=== PATIENT | male | born 1955 | race African-American/Black ===

== ENCOUNTER 2016-05-10 05:03 | Inpatient (IN) | payer OTHER ==
[~2016-05-10] VITALS: Ht 185.4 cm; Wt 70.3 kg
[2016-05-10] MEDS ORDERED: CEFAZOLIN SODIUM/DEXTROSE,ISO 50 ML IV ONE (05:59)
[2016-05-10] MEDS ORDERED: IV NS 0.9% 1,000 ML ONE (05:59)
[2016-05-10] MEDS ORDERED: NEEDLELESS EST SET LARGE BORE 1 EA INFUS.SET MC ONE (06:00)
[2016-05-10] MEDS ORDERED: IV SET PRIMARY 1 EA INFUS.SET MC ONE (06:00)
[2016-05-10] MEDS ORDERED: SECONDARY IV SET 1 EA INFUS.SET MC ONE ×2 (06:00→16:15)
[2016-05-10] MEDS ORDERED: BACITRACIN 50000 UNITS/VIAL ONE (07:14)
[2016-05-10] MEDS ORDERED: BUPIVACAINE 0.5 % PF 150 MG/30 ML VIAL ONE (07:14)
[2016-05-10] MEDS ORDERED: KETOROLAC TROMETHAMINE INJ 30 MG/ML VIAL ONE (07:14)
[2016-05-10] MEDS ORDERED: HYDR-548 PO (07:27)
[2016-05-10 07:44] VITALS: BP 166/101
[2016-05-10] MEDS ORDERED: TRANEXAMIC ACID 3,000 MG in SODIUM CHLORIDE IRRIG SOLUTION 70 ML IR ONE (08:30)
[2016-05-10] MEDS ORDERED: MIDAZOLAM HCL 2 MG/2ML VIAL ONE ×2 (08:51)
[2016-05-10] MEDS ORDERED: MORPHINE SULFATE/PF 10 MG/10ML (1MG/ML) AMPUL ONE (08:52)
[2016-05-10] MEDS ORDERED: AMBIEN 5 MG TABLET PO PRN (12:00)
[2016-05-10] MEDS ORDERED: HYDROMORPHONE MDV 30 MG in IV NS 0.9% 15 ML, PCA TOTAL VOLUME 1 BAG IV PRN ×3 (12:00)
[2016-05-10] MEDS ORDERED: ZOFRAN 4mg/2ML IV PRN (12:00)
[2016-05-10] MEDS ORDERED: NALOXONE HCL 0.4 MG/ML AMPUL IV PRN (12:00)
[2016-05-10] MEDS ORDERED: DULCOLAX 10 MG/SUPP.RECT RC PRN (12:00)
[2016-05-10] MEDS ORDERED: TYLENOL 650 MG TABLET PO PRN (12:00)
[2016-05-10] MEDS ORDERED: COLACE 250 MG CAPSULE PO PRN (12:00)
[2016-05-10] MEDS ORDERED: SENOKOT 8.6 MG TABLET PO PRN (12:00)
--- NOTE | 2016-05-10 12:20 | NUR ---
Tele/RN: notes Per CUSTOMS AND BORDER PROTECTION INSPECTOR Pat report: Dr. Merida made aware for pain management consult.
[2016-05-10 12:30] VITALS: BP 123/90
--- NOTE | 2016-05-10 12:30 | NUR ---
Tele/RN; notes received patient from recovery room via bed with stable condition, initial assessment completed, vss, tele NSR, saturation 95% on room air, s/p right knee surgery with dressing dry and intact, no bleeding noted, ice pack applied to. DVT pump in place, patient wake and alert, no complain, no shortness of breath noted, will continue to monitor closely and intervene as appropriate.
[2016-05-10] MEDS ORDERED: IV SET PRIMARY PUMP SET 1 EA INFUS.SET MC ONE (12:45)
[2016-05-10] MEDS: IV D5/0.45 NACL 1,000 ML IV PRN ×2 (12:49→20:19)
--- NOTE | 2016-05-10 13:45 | NUR ---
Tele/RN: notes Called Pharmacist Tan regarding SEWING MACHINE ADJUSTER order, Tan states:" need Dr. Merida put the order in."
[2016-05-10] MEDS: HYDROCODONE/APAP 5/325MG 1 EACH TABLET PO PRN ×2 (14:01→20:28)
[2016-05-10] MEDS ORDERED: ANESTHESIA TRAY IN PYXIS 1 EA TRAY MC ONE (14:07)
--- NOTE | 2016-05-10 15:00 | NUR ---
Tele/RN: notes PT eval, patient OOB and ambulate with fww, and immobilizer on right leg, walk about 40 ft, tolerated well. back to bed with CPM on -5 to 40, will continue to monitor and assess.
[2016-05-10 16:00] VITALS: BP 110/72
[2016-05-10] MEDS: ANCEF 1 G in IV D5W 50 ML IV SCH (16:24)
[2016-05-10] MEDS: RIVAROXABAN 10 MG TABLET PO SCH (16:28)
--- NOTE | 2016-05-10 18:29 | NUR ---
Tele /RN; notes Patient's condition remains stable, no acute change noted, patient denies pain, no shortness of breath noted, room air saturation >95%,NSR on monitor,vss,tolerated well on CPM. dressing dry and intact on right knee. tolerated diet well, no nausea, vomiting noted, adequate urine output, no BM, no passing gas. Will continue to monitor closely and intervene as appropriate.
--- NOTE | 2016-05-10 19:30 | NUR ---
ENVIRONMENTAL COMPLIANCE INSPECTOR NOTE RECEIVED PATIENT FROM DAY SHIFT, PATIENT IS ALERT AND ORIENTEDX4, DENIES RESPIRATORY DISTRESS OR PAIN AT THIS TIME. HAD RIGHT TKA ON CPM MACHINE ON RIGHT LEG. IV ON LEFT FA IS PATENT AND INTACT, FLUID IS RUNNING. TELE MONITOR SR 88. SRX2, BED IN LOW POSITION, CALL LIGHT WITHIN REACH, WILL CONTINUE TO MONITOR PATIENT.
--- NOTE | 2016-05-10 20:30 | NUR ---
DATA CENTER PROJECT MANAGER NOTE CPM MACHINE REMOVED, PATIENT COMPLAINS OF MILD PAIN ON RIGHT LEG, 6/10. 2 TABS OF NORCO 5/325MG GIVEN. WILL MONITOR FOR EFFECTIVENESS.
[2016-05-11] MEDS: ANCEF 1 G in IV D5W 50 ML IV SCH (00:26)
[2016-05-11 00:28] VITALS: BP 96/67
[2016-05-11] MEDS ORDERED: MORPHINE SULFATE INJ 2 MG/ML DISP.SYRIN ONE (01:49)
[2016-05-11] MEDS ORDERED: MORPHINE SULFATE INJ 2 MG/ML DISP.SYRIN IV PRN ×2 (02:00→14:00)
--- NOTE | 2016-05-11 02:00 | NUR ---
MELT DOWN FURNACE OPERATOR NOTE PATIENT COMPLAINS OF SEVERE PAIN ON LEFT LEG 11/30, ASKED FOR A STRONGER MED THAN NORCO. TALKED TO DR. BURGOS AND GOT AN ORDER OF MORPHINE 2MG IVP Q4H PRN. ORDERS PUT IN AND ADMINISTERED. WILL MONITOR FOR EFFECTIVENESS.
[2016-05-11 04:14] VITALS: BP 97/70
[2016-05-11] MEDS: IV D5/0.45 NACL 1,000 ML IV PRN (05:10)
--- NOTE | 2016-05-11 06:54 | NUR ---
SHELL ASSEMBLER NOTE PATIENT IS RESTING IN BED COMFORTABLY, NO S/S OF RESPIRATORY DISTRESS AND DENIES PAIN AT THIS TIME. IV ON LEFT FA IS PATENT AND INTACT, FLUID IS RUNNING. TELE MONITOR SR 93. WILL ENDORSE TO DAY SHIFT NURSE FOR AVE.
[2016-05-11] MEDS: HYDROCODONE/APAP 5/325MG 1 EACH TABLET PO PRN ×3 (07:01→19:15)
[2016-05-11 07:02] VITALS: BP 112/72
[2016-05-11 07:33] LABS: CALCIUM, SERUM 8.4 mg/dL (8.5-10.1); CREATININE 1.1 mg/dL (0.6-1.3); POTASSIUM 3.8 mmol/L (3.5-5.1)
--- NOTE | 2016-05-11 07:53 | NUR ---
SURGERY ASSISTANT NOTE PATIENT IN BED , AL NEEDS ATTENDED HAVING BREAKFAST, ABLE TO EAT SELF , ON TELE MONITOR SR 72 WITH F\C TO GRAVITY WITH YELLOW COLOR URINE , BED IN , RT KNEE WITH DRESSING INTACT , ON IVF ORDERED , LOWEST AND LOCKED POSITION , CALL LIGHT WITHIN REACH , DVT PUMPS IN PLACE , WILL CONT TO MONITOR CLOSELY NO C\O PAIN OR DISCOMFORT AT THIS TIME
[2016-05-11 08:00] VITALS: BP 112/73
[2016-05-11 08:28] LABS: BASOPHILS % (AUTO) 0.3 % (0.0-2.0); EOSINOPHILS # (AUTO) 0.2 /CMM (0.0-0.7); EOSINOPHILS % (AUTO) 2.3 % (0.0-6.0); HEMATOCRIT 36 % (39-51); HEMOGLOBIN 11.7 g/dL (13.5-17.5); LYMPHOCYTES # (AUTO) 2.6 /CMM (0.8-4.8); LYMPHOCYTES % (AUTO) 32.1 % (20.0-44.0); MEAN CORPUSCULAR HEMOGLOBIN 32 PG (26.0-33.0); MEAN CORPUSCULAR HGB CONC 32 g/dl (31.0-36.0); MEAN CORPUSCULAR VOLUME 100 fL (80-96); MONOCYTES # (AUTO) 0.9 /CMM (0.1-1.30); MONOCYTES % (AUTO) 11.5 % (2.0-12.0); NEUTROPHILS # (AUTO) 4.4 /CMM (1.8-8.9); NEUTROPHILS % (AUTO) 53.8 % (43.0-81.0); PLATELET COUNT (AUTO) 176 /CMM (150-450); RDW COEFFICIENT OF VARIATION 12.8 (11.5-15.0); RED BLOOD CELL COUNT(AUTO) 3.65 MIL/uL (4.5-6.0); WHITE BLOOD COUNT (AUTO) 8.2 K/uL (4.3-11.0)
[2016-05-11] MEDS ORDERED: TRANEXAMIC ACID 3,000 MG in SODIUM CHLORIDE IRRIG SOLUTION 70 ML IR ONE (08:30)
--- NOTE | 2016-05-11 10:07 | NUR ---
MS RN NOTE TELE REMOVED ORDERED SEEN BY PT , ABLE TO AMBULATE 100 FEET AND NOW ABLE TO SIT ON W\C SEEN BY KESHA CARLSON NO DRESSING CHANGE YET
--- NOTE | 2016-05-11 11:05 | NUR ---
MS RN NOTE PATIENT REFUSED TO HAVE CPM KIRAN AT THIS TIME , WANTS TO GO BACK TO BED , ALL NEEDS ATTENDED ,NOT IN ACUTE DISTRESS
--- NOTE | 2016-05-11 12:03 | NUR ---
MS RNNOTE NORCO PO GIVEN ORDERED PAIN LEVEL 7-8/10 HAVING LUNCH NOT IN ACUTE DISTRES
--- NOTE | 2016-05-11 12:56 | NUR ---
MS RN NOTE F\C REMOVED URINATED 1000 ML
[2016-05-11] MEDS: IV NS 0.9% 1,000 ML IV PRN (13:26)
--- NOTE | 2016-05-11 14:32 | NUR ---
MS DUTTA NOTE OFFERED TO PLACE CPM MACHINE ,STATED NO AT THIS TIME ,WILL DO AFTER PT TX Addendum: 05/11/16 at 1439 by ROMELIA HENDRIX RN SEEN BY PT , ABLE TO AMBULATE WELL USING A WALKER, NOT IN DISTRESS WILL CONT TO MONITOR CLOSELY
[2016-05-11] MEDS: MORPHINE SULFATE INJ 2 MG/ML DISP.SYRIN IV PRN ×3 (15:00→23:13)
--- NOTE | 2016-05-11 15:15 | NUR ---
MS DUTTA NOTE SEEN BY PT ,PLACED ON CPM MACHINE 45 DEGREE FLEXION, MORPHINE 3 M IVP GIVEN FOR RT KNEE GIVEN BP 117/78 ,SAT 96% , Addendum: 05/11/16 at 1713 by ROMELIA HENDRIX RN MORPHINE GIVE ONLY ONE TIME AT 1500 3 MG
[2016-05-11 16:00] VITALS: BP 130/84
[2016-05-11] MEDS: RIVAROXABAN 10 MG TABLET PO SCH (16:23)
--- NOTE | 2016-05-11 17:23 | NUR ---
MS RN NOTE CPM MACHINE REMOVED REQUESTED BY PATIENT HAVING DINNER ,
--- NOTE | 2016-05-11 18:36 | NUR ---
MS RN NOTE ALL NEEDS ATTENDED RESTING COMFORTABLY IN BED , NOT IN ACUTE DISTRESS, CALL LIGHT WITHIN REACH
--- NOTE | 2016-05-11 19:15 | NUR ---
MS RN NOTE PATIENT COMPLAINS OF RIGHT LEG 8/10, 2XNORCO 5-325MG GIVEN. WILL MONITOR FOR EFFECTIVENESS.
--- NOTE | 2016-05-11 19:30 | NUR ---
MS RN NOTE RECEIVED PATIENT FROM DAY SHIFT, PATIENT IS ALERT AND ORIENTEDX4, DENIES RESPIRATORY DISTRESS OR PAIN AT THIS TIME. PATIENT WAS ABLE TO WALK WITH PT DURING THE DAY SHIFT, RODRIGEZ WAS DISCONTINUED, ABLE TO URINATE INTO A URINAL. SRX2, BED IN LOW POSITION, CALL LIGHT WITHIN REACH, WILL CONTINUE TO MONITOR PATIENT.
[2016-05-11 20:00] VITALS: BP 150/96
--- NOTE | 2016-05-11 23:19 | NUR ---
MS RN NOTE PATIENT COMPLAINS OF SEVERE PAIN ON RIGHT KNEE /. MORPHINE 3MG IVP GIVEN. WILL MONITOR EFFECTIVENESS.
[2016-05-12] MEDS: MORPHINE SULFATE INJ 2 MG/ML DISP.SYRIN IV PRN ×3 (04:02→23:26)
--- NOTE | 2016-05-12 04:40 | NUR ---
MS RN NOTE PATIENT'S BP AT 0400 WAS 170/97 PULSE 101, ASYMPTOMATIC. CONTACTED ONCMADHU BADILLO AND GOT AN ORDER OF METOPROLOL 25MG PO ONCE THEN BID. ORDERS PUT IN AND WILL CARRY OUT.
[2016-05-12] MEDS ORDERED: METOPROLOL TARTRATE 25 MG TABLET ONE (04:52)
[2016-05-12] MEDS ORDERED: METOPROLOL TARTRATE 25 MG TABLET PO ONE (05:00)
[2016-05-12] MEDS: IV NS 0.9% 1,000 ML IV PRN ×2 (06:30→23:25)
[2016-05-12 06:33] VITALS: BP 155/90
--- NOTE | 2016-05-12 06:45 | NUR ---
MS RN NOTE PATIENT IS RESTING IN BED COMFORTABLY, DENIES RESPIRATORY DISTRESS AND SOB AT THIS TIME. BP AT 0630 WAS 155/90 PULSE 79. IV ON LEFT AC IS PATENT AND INTACT, FLUID IS RUNNING. WILL ENDORSE TO DAY SHIFT NURSE FOR AVE.
[2016-05-12 07:27] LABS: BASOPHILS % (AUTO) 0.4 % (0.0-2.0); EOSINOPHILS # (AUTO) 0.1 /CMM (0.0-0.7); EOSINOPHILS % (AUTO) 0.9 % (0.0-6.0); HEMATOCRIT 36 % (39-51); LYMPHOCYTES # (AUTO) 2.9 /CMM (0.8-4.8); LYMPHOCYTES % (AUTO) 27.4 % (20.0-44.0); MEAN CORPUSCULAR HEMOGLOBIN 33 PG (26.0-33.0); MEAN CORPUSCULAR HGB CONC 33 g/dl (31.0-36.0); MEAN CORPUSCULAR VOLUME 99 fL (80-96); MONOCYTES # (AUTO) 1.2 /CMM (0.1-1.30); NEUTROPHILS # (AUTO) 6.4 /CMM (1.8-8.9); NEUTROPHILS % (AUTO) 60.3 % (43.0-81.0); PLATELET COUNT (AUTO) 173 /CMM (150-450); RDW COEFFICIENT OF VARIATION 12.5 (11.5-15.0); RED BLOOD CELL COUNT(AUTO) 3.67 MIL/uL (4.5-6.0); WHITE BLOOD COUNT (AUTO) 10.6 K/uL (4.3-11.0)
--- NOTE | 2016-05-12 07:30 | NUR ---
PT RECEIVED RESTING COMFORTABLY IN BED WITH EYES CLOSE. NO S/S OR C/O PAIN OR DISTRESS NOTED. SIDE RAILS UP X2, CALL LIGHT LEFT WITHIN REACH. WILL CONTINUE PLAN OF CARE.
[2016-05-12 07:48] LABS: CALCIUM, SERUM 8.5 mg/dL (8.5-10.1); CREATININE 1.1 mg/dL (0.6-1.3); POTASSIUM 4.1 mmol/L (3.5-5.1)
[2016-05-12 08:00] VITALS: BP 131/89
[2016-05-12] MEDS: HYDROCODONE/APAP 5/325MG 1 EACH TABLET PO PRN ×2 (08:25→17:57)
[2016-05-12] MEDS: hydrALAZINE HCL 50 MG TABLET PO SCH ×3 (08:30→16:36)
[2016-05-12 08:54] LABS: MAGNESIUM 1.6 mg/dL (1.8-2.4); PHOSPHORUS 3.2 mg/dL (2.5-4.9); THYROID STIMULATING HORMONE 1.011 uIU/mL (0.358-3.74)
[2016-05-12] MEDS ORDERED: SECONDARY IV SET 1 EA INFUS.SET MC ONE (11:29)
[2016-05-12] MEDS: Magnesium 1GM/D5W 100ML PREMIX 100 ML IV SCH ×2 (11:41→13:56)
[2016-05-12 16:00] VITALS: BP 121/83
[2016-05-12] MEDS: METOPROLOL TARTRATE 25 MG TABLET PO SCH (16:37)
[2016-05-12] MEDS: RIVAROXABAN 10 MG TABLET PO SCH (16:37)
--- NOTE | 2016-05-12 18:19 | NUR ---
CHANGE OF SHIFT REPORT PT RESTING COMFORTABLE IN BED. NO S/S OR C/O PAIN OR DISTRESS NOTED. SIDE RAILS UP X2, CALL LIGHT LEFT WITHIN REACH. PT KEPT CLEAN, DRY, AND COMFORTABLE. NO SIGNIFICANT CHANGES SINCE PREVIOUS SHIFT. WILL GIVE REPORT TO FREDDIE DUTTA.
--- NOTE | 2016-05-12 19:35 | NUR ---
RN OPENING NOTES RECEIVED REPORT FROM MERI RNMALAIKA. Pt IS A/OX4, VERBAL, ABLE TO MAKE NEEDS KNOWN. FOUND Pt ASLEEP IN BED. NO S/S OF ACUTE DISTRESS OR SOB NOTED. IV ACCESS ON LFA #20G, NS @70ML/HR, INFUSING WELL. SAFETY MEASURES IN PLACE. BED LOW, LOCKED, HOB ELEVATED, SIDE RAILS UP, CALL LIGHT AND BEDSIDE TABLE WITHIN REACH. WILL CONTINUE TO MONITOR Pt THROUGHOUT THE NIGHT.
[2016-05-12 20:00] VITALS: BP 103/67
[2016-05-12 22:00] VITALS: BP 103/67
[2016-05-13] MEDS: HYDROCODONE/APAP 5/325MG 1 EACH TABLET PO PRN ×3 (04:18→17:58)
--- NOTE | 2016-05-13 06:45 | NUR ---
RN CLOSING NOTES NO SIGNIFICANT CHANGES DURING THE NIGHT. NO S/S OF ACUTE DISTRESS OR SOB NOTED. SAFETY MEASURES IN PLACE. ALL NEEDS MET AND ATTENDED TO. WILL ENDORSE TO DAYSHIFT RN FOR Pt's AVE.
[2016-05-13 06:53] LABS: MAGNESIUM 2.1 mg/dL (1.8-2.4); POTASSIUM 3.9 mmol/L (3.5-5.1)
[2016-05-13 08:00] VITALS: BP 106/79
--- NOTE | 2016-05-13 08:00 | NUR ---
MS RN NOTE PT. AWAKE, ALERT AND ORIENTED X4. COMPLAINTS OF RT LEG PAIN. GAVE MORPHINE 3MG IVP. VS STABLE. DRESSING DRY AND INTACT ON THE RT LEG. NO SOB AT THIS TIME. SIDE RAILS UP. CALL LIGHT WITHIN REACH. MONITOR CLOSELY.
[2016-05-13] MEDS: MORPHINE SULFATE INJ 2 MG/ML DISP.SYRIN IV PRN (08:20)
[2016-05-13] MEDS: METOPROLOL TARTRATE 25 MG TABLET PO SCH ×2 (08:24→16:56)
[2016-05-13] MEDS: hydrALAZINE HCL 50 MG TABLET PO SCH ×3 (08:24→16:55)
[2016-05-13] MEDS ORDERED: RIVA10TA PO (13:56)
[2016-05-13] MEDS ORDERED: Hydralazine Hcl PO (13:56)
[2016-05-13] MEDS ORDERED: Sennosides PO (13:56)
[2016-05-13] MEDS ORDERED: METO25TA20 PO (13:56)
[2016-05-13] MEDS ORDERED: Ondansetron Hcl/Pf IV (13:56)
[2016-05-13] MEDS ORDERED: Docusate Sodium PO (13:56)
[2016-05-13 16:00] VITALS: BP 97/67
[2016-05-13] MEDS: RIVAROXABAN 10 MG TABLET PO SCH (16:59)
[2016-05-13 17:00] VITALS: BP 97/67
--- NOTE | 2016-05-13 18:23 | NUR ---
CLOSING SHIFT PT. AWAKE, ALERT AND ORIENTED X4. COMPLAINTS OF RT KNEE PAIN, BUT IT TOLERATED BY PAIN MEDS. DRESSING DRY & INTACT. BP 100/65 @ 6PM. REPORT GIVEN TO THE [facility] ( [facility]). AMBULANCE WILL BLOW DOWN HELPER THE PT AT 7:30PM. EXPLAINED TO THE PT. CALL LIGHT WITHIN REACH. SIDE RAILS UP. MONITOR CLOSELY.
--- NOTE | 2016-05-13 20:00 | NUR ---
MS RN NOTE PATIENT DISCHARGED TO [facility] IN STABLE CONDITION. TRANSPORTED BY AMBULANCE WITH ALL BELONGINGS. ID BAND REMOVED, IV REMOVED. ALL DISCHARGE INSTRUCTIONS EXPLAINED TO PATIENT. PT. VERBALIZED UNDERSTANDING.
== END 2016-05-13 20:00 | DRG 470 ==
LOC: DS 05:03 → MED 12:12 → TELE 14:46 → MED 05-11 09:55
PROVIDERS: ADMIT Specialist; ATTEND Family Medicine
PROC: 0SRC0J9 Replacement of Right Knee Joint with Synthetic Substitute, Cemented, Open Approach (ICD-10-PCS; principal; 2016-05-10 09:15)
DX: M17.11 Unilateral primary osteoarthritis, right knee (principal); F17.210 Nicotine dependence, cigarettes, uncomplicated; I10 Essential (primary) hypertension
CPT/HCPCS: 36415; 71010-TC; 80048-TC; 80061-TC; 82728-TC; 83540-TC; 83735-TC; 84100-TC; 84439-TC; 84443-TC; 85025-TC; 86850-TC; 86921-TC; 87081-TC; 88305-TC; 88311-TC; 93307-TC; 97001-TC; 97110-TC; 97116-TC; 97530-TC; 97760-TC; A4217; A6402; C1713; J0690; J1885; J2250; J2270; J2274; J2370; J2405; J2704; J3475; J3490; J7030; J7060; Z7610